=== PATIENT | female | born 1995 | race Hispanic/Latino ===

== ENCOUNTER 2019-08-12 13:27 | Day surgery (SDC) | payer OTHER ==
[2019-08-12 14:07] VITALS: BMI 28.1
[2019-08-12] MEDS ORDERED: hydrALAZINE 20 MG/ML VIAL SLOW IVP PRN (14:32)
[2019-08-12] MEDS ORDERED: Lactated Ringer's 1,000 ML IV SCH (14:45)
[2019-08-12 15:12] LABS: #Eosinphils 0.1 thou/uL (0.0-0.7); #Lymphocytes 1.2 thou/uL (1.20-3.40); #Monocytes 0.6 thou/uL (0.11-0.59); #Neutrophils 6.3 thou/uL (1.40-6.50); %Basophils 0.2 % (0.0-1.0); %Eosinophils 0.8 % (0.0-10.0); %Lymphocytes 14.4 % (21.0-51.0); %Monocytes 7.8 % (0.0-10.0); %Neutrophils 76.8 % (42.0-75.0); Hemoglobin 9.4 g/dL (12.0-16.0); Mean Corpuscular Hemoglobin 30.9 pg (27.0-31.0); Mean Corpuscular Volume 88.1 fL (78.0-98.0); Mean Platelet Volume 7.1 fL (7.4-10.4); Platelet Count 375 thou/uL (130-400); RBC Distribution Width 11.6 % (11.5-14.5); Red Blood Cell (RBC) Count 3.05 mill/uL (4.20-5.40); White Blood Cell (WBC) Count 8.2 thou/uL (4.8-10.8)
[2019-08-12 15:16] LABS: Bilirubin Negative (Negative); Blood, Urine Negative (Negative); Calcium Oxalate Crystals Rare HPF (None Seen); Clarity Clear (Clear); Glucose, Urine (Dipstick) Normal (Negative); Leukocyte Negative Leu/uL (Negative); Nitrite Negative (Negative); Protein, Urine (Dipstick) 10 mg/dL (Neg-Trace); RBC/HPF 0-3 HPF (0-3); Squamous Epithelial 0-3 HPF (0-3); Urobilinogen Normal mg/dL (Less than 2); WBC/HPF 0-3 HPF (0-3)
[2019-08-12 15:17] LABS: Bacteria/HPF 1+ HPF (None Seen)
[2019-08-12 15:18] LABS: Urine Culture Reflex No No
--- NOTE | 2019-08-12 16:42 | PDOC.FPROB ---
FMR OB H&P: HPI - History of Present Illness Chief Complaint: hematuria, ctx Indentification: 23 y/o @ 31.3 WGA History of Present Illness: Patient has h/o recurrent UTI during , most recently completed a course of keflex last week presents for hematuria, dysuria, and ctx. She reports her symptoms started this AM. Denies fevers, chills. Reports the ctx are every 5 minutes or so and rates them as a 10/10. Endorses movement, denies vaginal bleeding, vaginal d/c, LOF. Primary Care Physician: Dr. 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: h/o chlamydia in high school none during - Surgical History Sx History: appendectomy, ankle sx, wrist cyst removal, thumb sx, finger sx - Social History Social History: Denies tobacco, EtOH, or drug use - Family History Family History: Denies FMR OB H&P: Medications - Current Home Medications: Medication Instructions Recorded Confirmed Type Nortriptyline [Pamelor] 2 capsule PO DAILY 08/12/19 08/12/19 History Allergies/Adverse Reactions: Allergies Allergy/AdvReac Type Severity Reaction Status Date / Time No Known Allergies Allergy Verified 08/12/19 14:10 FMR OB H&P: ROS - Review of Systems General: denies: fever/chills, weight/appetite/sleep changes, fatigue Eyes: denies: vision changes, double vision ENT: denies: nasal congestion, rhinorrhea Cardiovascular: denies: chest pain, edema Respiratory: denies: cough, shortness of breath Gastrointestinal: reports: abdominal pain. denies: nausea, vomiting, diarrhea Genitourinary (Female): reports: dysuria, hematuria, contractions. denies: polyuria, vaginal discharge, vaginal pain, vaginal bleeding Musculoskeletal: denies: pain, tenderness Neurologic: denies: numbness, weakness Integumentary: denies: itching, rash Breast: denies: lumps, bumps Endocrine: denies: cold intolerance, heat intolerance Hematologic/Lymphatic: denies: prolonged or excessive bleeding, enlarged lymph nodes FMR OB H&P: Vital Signs - Maternal Vital signs: BP 103/57, HR 94, RR 16, O2 100% on RA - Heart Tones Baseline: 140 Variability: moderate Acceleration: present Deceleration: absent Category: category 1 FMR OB H&P: Physical Exam - Physical Exam General: NAD, awake, alert and oriented HEENT: EOMI, MMM, conjunctiva clear, grossly normal vision, grossly normal hearing Neck: supple, FROM Heart: RRR, normal S1/S2, no murmurs/rubs/gallops, pulses present, no edema General: CTAB, no respiratory distress, good air movement, no rales/rhonchi, no wheezing Abdomen: soft, gravid, other (mildly tender in suprapubic region) Musculoskeletal: pulses present, other (mild right sided back pain, no CVAT) Neurological: no clonus, no focal deficit Skin: good tugor, capillary refill <2 seconds Lymphatic: no unusual bruising or bleeding, no purpura Psychiatric: intact recent and remote memory, good judgement and insight - Pelvic Exam Vulva: normal hair distribution, no masses, no blood (leukorrhea of ), normal rugae Cervix: no masses, no lesions SVE: FT/50/-3 FMR OB H&P: Results - Labs Lab results: Laboratory Results - last 24 hr 08/12/19 08/12/19 14:58 15:02 WBC 8.2 RBC 3.05 L Hgb 9.4 L Hct 26.9 L MCV 88.1 MCH 30.9 MCHC 35.0 RDW 11.6 Plt Count 375 MPV 7.1 L Neutrophils % 76.8 H Lymphocytes % 14.4 L Monocytes % 7.8 Eosinophils % 0.8 Basophils % 0.2 Neutrophils # 6.3 Lymphocytes # 1.2 Monocytes # 0.6 H Eosinophils # 0.1 Basophils # 0.0 Urine Color Yellow Urine Clarity Clear Urine pH 6.5 Ur Specific [place] 1.022 Urine Protein 10 Urine Glucose (UA) Normal Urine Ketones Negative Urine Blood Negative Urine Nitrite Negative Urine Bilirubin Negative Urine Urobilinogen Normal Ur Leukocyte Esterase Negative Urine RBC 0-3 Urine WBC 0-3 Ur Squamous Epith Cells 0-3 Calcium Oxalate Crystal Rare A Urine Bacteria 1+ Hyaline Casts 0-3 Urine Culture Reflexed No FMR OB H&P: A/P - Problem List (1) contractions Status: Acute Code(s): O47.9 - FALSE LABOR, UNSPECIFIED Assessment and Plan: Cervical check was FT/50/-3 with contractions that were variable and not picking up on the monitor. Appeared dehydrated, so have given 2L LR -Will d/c home with strict labor precautions -f/u with Dr. Baer Disposition: d/c home Discussion: Date/Time: 08/12/19 1640 This H&P was discussed with Dr. Goodman who agrees with the above documentation and plan. Patient seen and examined by Dee Goodman MD. I agree with Dr Mcgraw assesment and plan Signature: Claudia Dorsey MD, PGY-3
== END 2019-08-12 17:15 | disposition home health service (06) ==
LOC: L&D/OP 13:27
PROVIDERS: ATTEND Family Medicine
DX: O47.03 False labor before 37 completed weeks of gestation, third trimester (principal); O99.89 Other specified diseases and conditions complicating pregnancy, childbirth and the puerperium; R31.9 Hematuria, unspecified; Z3A.31 31 weeks gestation of pregnancy; Z79.899 Other long term (current) drug therapy
CPT/HCPCS: 51701; 81001; 85025; 96360; 96361; 99283

== ENCOUNTER 2019-09-13 20:20 | Day surgery (SDC) | payer OTHER ==
[2019-09-13 20:57] VITALS: BMI 29.0
[2019-09-13] MEDS ORDERED: hydrALAZINE 20 MG/ML VIAL SLOW IVP PRN (21:21)
[2019-09-13] MEDS ORDERED: diphenhydrAMINE 50 MG/ML VIAL IVP PRN (21:22)
[2019-09-13] MEDS ORDERED: Metoclopramide HCl 10 MG/2 ML VIAL IVP PRN (21:22)
[2019-09-13] MEDS ORDERED: Sodium Chloride 0.9% 2,000 ML IV SCH (21:30)
[2019-09-13 22:10] LABS: Bacteria/HPF None Seen HPF (None Seen); Bilirubin Negative (Negative); Blood, Urine Negative (Negative); Clarity Clear (Clear); Glucose, Urine (Dipstick) Normal (Negative); Leukocyte Negative Leu/uL (Negative); Nitrite Negative (Negative); Protein, Urine (Dipstick) Negative (Neg-Trace); RBC/HPF 0-3 HPF (0-3); Squamous Epithelial 0-3 HPF (0-3); Urobilinogen Normal mg/dL (Less than 2); WBC/HPF 0-3 HPF (0-3)
--- NOTE | 2019-09-13 22:13 | PRG ---
DATE OF SERVICE: 09/13/2019 PRIMARY PRODUCTION ADMINISTRATOR: Dr. Juan Pablo Baer. CHIEF COMPLAINT: Back pain, pelvic pain, and headache. HISTORY OF PRESENT ILLNESS: The patient is a 23-year-old, G3, P0 female with an intrauterine at 36 weeks, who is presenting to Labor and Delivery with a 2-day history of back and pelvic pain. She reports that she has been having cramping more consistently today and has come in for evaluation. The patient reports that she has had chronic headaches for most of her and has been on nortriptyline that she takes every night and hydrocodone p.r.n. for headaches. The patient also reports that she had a urinary tract infection back in June, that she has had 2 in this , had one back in June, was on Keflex or antibiotic that she believed was making it worse and so discontinued it before completion. She reported that she was re-tested sometime later and was told that her infection had cleared. She saw her doctor last on Wednesday and has her urinalysis results with her by Patient Portal. The patient denies fever, fall, chest pain, shortness of breath, nausea, vomiting, diarrhea, constipation, hip problems, knee problems, or muscle weakness. Denies vaginal bleeding. She does report a discharge that she notices when she urinates. Denies urinary urgency or frequency. PAST MEDICAL HISTORY: Includes asthma, off medications. PAST SURGICAL HISTORY: She has had some ligament reconstruction on her hand and she has had a cyst removed on her wrist and has had her appendix removed. OB LABS: Unavailable at time of dictation. REVIEW OF SYSTEMS: Per HPI. PHYSICAL EXAMINATION: VITAL SIGNS: Blood pressure 125/88, heart rate in the one-teens, respiratory rate 18, saturating 100% on room air, and temperature 98.3. GENERAL: She appears to be in no acute distress. The patient is alert, oriented, cooperative, and pleasant to interact with. She does appear tearful and uncomfortable and points to the headache, primarily being on the right side. LUNGS: Clear to auscultation bilaterally. HEART: Regular rate and rhythm. ABDOMEN: Gravid and soft. She has tenderness to palpation in her SI joints bilaterally. She has no CVA tenderness appreciated on physical exam. : Has been deferred at this time. heart tracing shows fetus with a baseline in the 140s with moderate long- term variability and positive 15 x 15 accelerations. Tocometer shows a lot of irritability, but no contraction pattern. LABORATORY DATA: Urinalysis and VPIII are pending. In reviewing the records, the patient appears to have had a urinalysis with positive culture of E coli back in June. She also had a urinalysis in July, positive for 1+ bacteria and no documentation of treatment. Review of urine dip from the clinic just a few days ago shows positive nitrites and positive leukocyte esterase. ASSESSMENT AND PLAN: The patient is a 23-year-old female with contractions and physical exam findings, history, and lab findings highly suggested that she still has a urinary tract infection, likely causing her irritability. The patient will be getting IV with some aggressive hydration, a urinalysis for evaluation and suspect she continues to have a urinary tract infection. I gave her 2 g Rocephin IV piggyback. In addition, we will be treating her headache with Reglan and Benadryl and then we will re-evaluate at that time. VPIII will also be collected and sent given the increased discharge that she is describing. addendum: Headache resolved with treatment no evidence of uti by cath ua Pt feeling better with aggressive hydration and treating headache vp3 +for gardernella= metronidazole 500 mg bid x7days provided pt discharged home with labor precautions Job ID: [id number] [facility]
== END 2019-09-13 23:56 | disposition home or self-care (01) ==
LOC: L&D/OP 20:20
PROVIDERS: ATTEND Family Medicine
DX: O47.03 False labor before 37 completed weeks of gestation, third trimester (principal); O99.89 Other specified diseases and conditions complicating pregnancy, childbirth and the puerperium; R51 Headache; Z3A.36 36 weeks gestation of pregnancy
CPT/HCPCS: 81001; 87480; 87510; 87660; 96360; 96361; 96375; 99283; J1200; J2765

== ENCOUNTER 2019-09-24 10:53 | Day surgery (SDC) | payer OTHER ==
[2019-09-24 11:36] VITALS: BP 116/81; TEMP 98.7; BMI 30.2
[2019-09-24] MEDS ORDERED: hydrALAZINE 20 MG/ML VIAL SLOW IVP PRN (11:53)
--- NOTE | 2019-09-24 12:03 | PDOC.FPROB ---
FMR OB H&P: HPI - History of Present Illness Chief Complaint: Decreased movement Indentification: 24 year old History of Present Illness: 24 year old at 37.4 wks presents with decreased movement. Patient states that she hasn't felt baby move much since last night. Patient has yet to have anything to eat or drink this morning. She denies any vaginal bleeding, vaginal discharge, LoF, or contractions. Patient has A1GDM and reports FBG in 80 's and 2h PP BG's <120 with high to 118. She was recently treated for a UTI during labor triage and finished course of antibiotics on . Primary Care Physician: Dr. Baer FMR OB H&P: Current - Care : 3 Para: 0020 Gestational age: 37.4 wks FMR OB H&P: History - Past Medical History PMH: No significant PMH - OB History OB History: A1GDM, well controlled per patient SAB x2, did not require D&C - REFRIGERATING ENGINEER History REFRIGERATING ENGINEER History: Remote history of STD's, none in this - Surgical History Sx History: Appendectomy - Social History Social History: Denies alcohol, tobacco, or drug use - Family History Family History: Denies significant PMH FMR OB H&P: Medications - Current Home Medications: Medication Instructions Recorded Confirmed Type Pnv No.121/Iron/Folic Acid 1 each PO DAILY 09/13/19 09/24/19 History [ Multivitamin Tablet] Allergies/Adverse Reactions: Allergies Allergy/AdvReac Type Severity Reaction Status Date / Time No Known Allergies Allergy Verified 09/13/19 20:51 FMR OB H&P: ROS - Review of Systems General: denies: fever/chills, weight/appetite/sleep changes Eyes: denies: vision changes, double vision ENT: denies: nasal congestion, sore throat Cardiovascular: reports: edema. denies: chest pain, palpitation Respiratory: denies: cough, congestion, shortness of breath Gastrointestinal: denies: abdominal pain, nausea, vomiting, diarrhea Genitourinary (Female): denies: dysuria, vaginal discharge, vaginal pain, vaginal bleeding, contractions Musculoskeletal: denies: pain, stiffness Integumentary: denies: itching, rash, lesions Hematologic/Lymphatic: denies: prolonged or excessive bleeding Psychological: denies: depression, anxiety FMR OB H&P: Vital Signs - Maternal Vital signs: Vital Signs - First Documented Temp Pulse Resp BP Pulse Ox 98.7 F 82 18 116/81 100 09/24/19 11:30 09/24/19 11:30 09/24/19 11:30 09/24/19 11:30 09/24/19 11:30 - Heart Tones Baseline: 145 (Reactive) Variability: moderate Acceleration: present Deceleration: absent [place] contractions every: Irregular FMR OB H&P: Physical Exam - Physical Exam General: NAD, awake, alert and oriented HEENT: MMM, grossly normal vision, grossly normal hearing Heart: RRR General: no respiratory distress Abdomen: soft, gravid Musculoskeletal: pulses present, FROM in all four extremities Neurological: no tremor, no focal deficit Skin: no rash, capillary refill <2 seconds Lymphatic: no unusual bruising or bleeding, no purpura Psychiatric: intact recent and remote memory, good judgement and insight, normal mood and affect FMR OB H&P: A/P - Problem List (1) Term Status: Acute Code(s): Z34.90 - ENCNTR FOR SUPRVSN OF NORMAL , UNSP, UNSP TRIMESTER (2) Decreased movement Status: Acute Code(s): O36.8190 - DECREASED MOVEMENTS, UNSP TRIMESTER, UNSP (3) Gestational diabetes mellitus, class A1 Status: Acute Code(s): O24.410 - GESTATIONAL DIABETES MELLITUS IN , DIET CONTROLLED Disposition: 24 year old at 37.4 wks TIUP w/ decreased movement - Reactive NST, patient noting movement (at least 10 w/in 10 min) - Follow up w/ Dr. Baer scheduled for Wednesday - Patient without subjective contractions or evidence of labor - Return precautions given UTI - s/p treatment, finished antibiotics on - Advised to notify Dr. Baer A1GDM - Well controlled per patient - FBG 80's, 2h PP BG <120 (high 118 per patient) Dispo: D/c with labor/return precautions. Discussion: Date/Time: 09/24/19 7709 This H&P was discussed with Dr. Christianson who agrees with the above documentation and plan. Signature: Ifrah Calixto DO PGY-3 Addendum - Attending - Attending Attestation Date/Time: 09/24/19 9755 I personally evaluated the patient and discussed the management with Dr. Calixto. I agree with the History, Examination, Assessment and Plan documented above.
== END 2019-09-24 12:09 | disposition home health service (06) ==
LOC: L&D/OP 10:53
PROVIDERS: ATTEND Family Medicine
DX: O36.8130 Decreased fetal movements, third trimester, not applicable or unspecified (principal); O24.410 Gestational diabetes mellitus in pregnancy, diet controlled; Z3A.37 37 weeks gestation of pregnancy
CPT/HCPCS: 59025; 99282

== ENCOUNTER 2019-09-26 11:44 | Inpatient (IN) | payer OTHER ==
[2019-09-26] MEDS ORDERED: Bupivacaine HCl 0.5%/Epinephrine 1:200,000/PF 30 ml Vial ONE (12:00)
[2019-09-26] MEDS ORDERED: ePHEDrine/0.9% NaCl/PF SYRINGE 50 mg/10 ml ONE (12:00)
[2019-09-26 12:32] VITALS: BMI 30.8
[2019-09-26] MEDS ORDERED: FLU VACC QS2019-20(6MOS UP)/PF 60 MCG/0.5 ML SYRINGE IM ONE (12:45)
--- NOTE | 2019-09-26 13:44 | ULT ---
US Biophysical Profile History: Decreased movement Comparison: OB ultrasound May 2019 Findings: Real-time grayscale evaluation of the gravid uterus was performed transabdominal approach. The amniotic fluid index measures 4.5 cm. heart rate documented at 140 bpm. Biophysical profile score is 8/8. The placenta is anterior and the presentation is cephalic. Impression: 1. Biophysical profile score of 8/8. 2. Abnormally low amniotic fluid index of 4.5 cm.
[2019-09-26] MEDS ORDERED: NS / Oxytocin 40 units/1000ml 1,000 ML IV PRN (13:47)
[2019-09-26] MEDS ORDERED: HYDROcodone/Acetaminophen 5/325 mg Tablet PO PRN (13:47)
[2019-09-26] MEDS ORDERED: Diphenoxylate HCl/Atropine Tablet PO PRN (13:47)
[2019-09-26] MEDS ORDERED: Lidocaine 1% (PF) 30 ML VIAL SC PRN (13:47)
[2019-09-26] MEDS ORDERED: Ibuprofen 800 MG TAB PO PRN (13:47)
[2019-09-26] MEDS ORDERED: Methylergonovine 0.2 MG/ML VIAL IM PRN (13:47)
[2019-09-26] MEDS ORDERED: Ondansetron PF 4 MG/2 ML Vial IVP PRN (13:47)
[2019-09-26] MEDS ORDERED: Misoprostol 200 MCG TAB PR PRN (13:47)
[2019-09-26] MEDS ORDERED: hydrALAZINE 20 MG/ML VIAL SLOW IVP PRN (13:47)
[2019-09-26] MEDS ORDERED: Carboprost 250 MCG/ML AMP IM PRN (13:47)
[2019-09-26] MEDS ORDERED: Promethazine HCl 25 MG/ML VIAL IM PRN (13:47)
[2019-09-26] MEDS ORDERED: Penicillin G Potassium 5 MILL.UNITS in Sodium Chloride 0.9% 100 ML IVPB SCH (14:00)
[2019-09-26] MEDS: Acetaminophen 500 MG TAB PO PRN ×2 (14:26→21:43)
[2019-09-26] MEDS: Lactated Ringer's 1,000 ML IV SCH ×2 (15:00→21:44)
[2019-09-26 15:25] LABS: Hemoglobin 8.4 g/dL (12.0-16.0); Mean Corpuscular HGB CONC 33.8 g/dL (32.0-36.0); Mean Corpuscular Hemoglobin 26.8 pg (27.0-31.0); Mean Corpuscular Volume 79.4 fL (78.0-98.0); Mean Platelet Volume 8.5 fL (7.4-10.4); Platelet Count 323 thou/uL (130-400); RBC Distribution Width 14.6 % (11.5-14.5); Red Blood Cell (RBC) Count 3.11 mill/uL (4.20-5.40)
[2019-09-26 16:03] LABS: HBSAg Index 0.14 S/CO (0-0.99); Hep B Surf Ag Non-Reactive S/CO (NonReactive); Syphilis Antibody Nonreactive (Nonreactive); Syphilis Antibody Index 0.04 S/CO (<1.00 Non-Reactive)
[2019-09-26] MEDS ORDERED: Penicillin G 2.5 MILL.units 2.5 MILL.UNITS in Premix Bag 1 BAG IVPB SCH (17:00)
[2019-09-26] MEDS: Misoprostol 100 MCG TAB PO SCH ×3 (17:20→23:52)
[2019-09-26] MEDS: NS w/ Oxytocin 10 units 500 ML IV SCH (17:21)
[2019-09-26] MEDS: Butorphanol Tartrate 1 MG/ML VIAL SLOW IVP PRN (21:43)
[2019-09-27] MEDS: Butorphanol Tartrate 1 MG/ML VIAL SLOW IVP PRN ×3 (01:51→08:42)
[2019-09-27] MEDS: Misoprostol 100 MCG TAB PO SCH (06:19)
[2019-09-27] MEDS: Lactated Ringer's 1,000 ML IV SCH ×3 (06:28→23:05)
[2019-09-27] MEDS: NS w/ Oxytocin 10 units 500 ML IV SCH ×3 (06:28→19:06)
[2019-09-27] MEDS ORDERED: Fentanyl 4 mcg/Bup 0.1% Cadd 100 ML ONE (07:16)
[2019-09-27] MEDS ORDERED: Lidocaine 2% PF 5 ML VIAL ONE (11:39)
[2019-09-27] MEDS ORDERED: Ketorolac Tromethamine 30 MG/ML VIAL ONE ×2 (11:39→23:43)
[2019-09-27] MEDS ORDERED: Ondansetron PF 4 MG/2 ML Vial ONE ×2 (11:39→23:43)
[2019-09-27] MEDS ORDERED: PHENYLEPHRINE-NS 100 MCG/ML 10 ML SYRINGE ONE ×2 (11:39→23:43)
[2019-09-27] MEDS: Fentanyl 4 mcg/Bupivacaine 0.1% Cassette 100 ML EPIDURAL SCH ×2 (13:29→21:14)
[2019-09-27] MEDS ORDERED: Promethazine HCl 25 MG/ML VIAL IM PRN (13:32)
[2019-09-27] MEDS ORDERED: Ondansetron PF 4 MG/2 ML Vial IVP PRN (13:32)
[2019-09-27] MEDS ORDERED: Acetaminophen 325 MG TAB PO PRN (13:32)
[2019-09-27] MEDS ORDERED: diphenhydrAMINE 50 MG/ML VIAL IVP PRN (13:32)
[2019-09-27] MEDS ORDERED: ePHEDrine/0.9% NaCl/PF SYRINGE 50 mg/10 ml SLOW IVP PRN (13:32)
[2019-09-27] MEDS ORDERED: Lactated Ringer's 500 ML IV PRN (13:32)
[2019-09-27] MEDS ORDERED: Naloxone HCl 0.4 mg/ml Vial IVP PRN ×2 (13:32)
[2019-09-27] MEDS ORDERED: Communication Order-Pharmacy FS SCH (13:45)
[2019-09-27] MEDS: Acetaminophen 500 MG TAB PO PRN (23:04)
[2019-09-27] MEDS ORDERED: Lidocaine 2% 10 ML INJ ONE ×2 (23:24→23:27)
[2019-09-27] MEDS ORDERED: Bicitra 30 ML UDCUP PO SCH (23:30)
[2019-09-27] MEDS ORDERED: CEFAZOLIN 2 GM in Premix Bag 1 BAG IVPB SCH (23:30)
[2019-09-27] MEDS ORDERED: Azithromycin 500 MG in Sodium Chloride 0.9% 250 ML 250 ML IVPB SCH (23:30)
[2019-09-27] MEDS: Ampicillin 2 GM in Sodium Chloride 0.9% 100 ML IVPB SCH (23:38)
[2019-09-27] MEDS ORDERED: Oxytocin 10 UNITS/ML VIAL ONE (23:43)
[2019-09-27] MEDS ORDERED: MORPHINE 5 MG/10 ML PF VIAL ONE (23:47)
[2019-09-27] MEDS ORDERED: Fentanyl 100 MCG/2 ML VIAL ONE (23:57)
[2019-09-27] MEDS ORDERED: Bupivacaine PF 0.5% 30 ML VIAL ONE (23:57)
[2019-09-27] MEDS ORDERED: Ampicillin 125 MG/5 ML VIAL SLOW IVP SCH (23:59)
[2019-09-28] MEDS ORDERED: Midazolam HCl 2 mg/2 ml Vial ONE (00:07)
[2019-09-28] MEDS ORDERED: Carboprost 250 MCG/ML AMP ONE (00:08)
[2019-09-28] MEDS ORDERED: Methylergonovine 0.2 MG/ML VIAL ONE (00:08)
[2019-09-28] MEDS ORDERED: Oxytocin 10 UNITS/ML VIAL ONE (00:20)
[2019-09-28] MEDS ORDERED: Naloxone HCl 0.4 mg/ml Vial IVP PRN ×2 (00:32)
[2019-09-28] MEDS ORDERED: Promethazine HCl 25 MG/ML VIAL IM PRN (00:32)
[2019-09-28] MEDS ORDERED: Naloxone HCl 0.4 mg/ml Vial IV PRN (00:32)
[2019-09-28] MEDS ORDERED: Ondansetron PF 4 MG/2 ML Vial IVP PRN ×2 (00:32→03:00)
[2019-09-28] MEDS ORDERED: diphenhydrAMINE 50 MG/ML VIAL IVP PRN (00:32)
[2019-09-28] MEDS ORDERED: L&D-Morphine 4 MG/ML VIAL SLOW IVP PRN (00:32)
[2019-09-28] MEDS ORDERED: Ondansetron HCl/PF 4 MG/2 ML Vial IVP PRN (00:32)
[2019-09-28] MEDS ORDERED: HYDROmorphone 2 MG/ML VIAL SLOW IVP PRN (00:32)
[2019-09-28] MEDS ORDERED: Meperidine HCl/PF 25 MG/ML VIAL SLOW IVP PRN (00:32)
[2019-09-28] MEDS ORDERED: Ketorolac Tromethamine 30 MG/ML VIAL IVP PRN (00:32)
[2019-09-28] MEDS ORDERED: Promethazine HCl 25 MG SUPP PR PRN (00:32)
[2019-09-28] MEDS ORDERED: PHENYLEPHRINE-NS 100 MCG/ML 10 ML SYRINGE ONE (00:33)
[2019-09-28] MEDS ORDERED: Ketorolac Tromethamine 30 MG/ML VIAL IVP SCH (00:45)
[2019-09-28] MEDS ORDERED: Communication Order-Pharmacy FS SCH (00:45)
--- NOTE | 2019-09-28 00:54 | PDOC.OPDEL ---
OB Operative/Delivery Note Delivery Dr/Surgeon: Genesis Baer Pre-Delivery Diagnosis: arrest of dilation Procedure/Post Delivery Dx: primary low transverse CS Anesthesia: epidural - Additional Findings/Plan Placenta delivered: manual removal Compilations/Other Findings: Date of Procedure: 09/27/2019 Attending Surgeon: Keyur Resident Surgeon: Genesis Procedure: Primary low transverse caesarean section Preoperative Diagnosis: 1) Term intrauterine 2) Arrest of dilation 3) Oligohydramnios 4) Intrapartum fever 5) GDMA1 6) Anemia Postoperative Diagnosis: 1)same as above Anesthesia: spinal Indications: The patient is a 24 year old female at 37.4 weeks gestation who presented for induction but due to arrest of dilation, proceeded with LTCS. Course also complicated by intrapartum fever and oligohydramnios. Procedure in Detail: After risks, benefits, and alternatives were explained to the patient, she gave informed consent. Pre-operative antibiotics included Cefazolin 2 gram IV, Ampicillin, Gentamicin, Azithromycin. The patient was taken to the operating room. She was placed in the supine position with a left tilt and prepped and draped in usual sterile fashion. A Pfannenstiel incision was made with a scalpel and carried down to the level of the fascia which was sharply nicked. The fascial cut was extended bilaterally with [place] sissors. The inferior and superior edges of the cut fascial edges were elevated with Serg clamps and the underlying rectus muscles were sharply and bluntly dissected free. The recti were divided digitally and retracted manually. The peritoneum was entered bluntly and retracted manually. Bladder blade was placed. A low transverse score was made with the scalpel and the uterus was entered in the midline with the scalpel. Clear fluid was seen. The hysterotomy was extended manually. The was noted to be vertex and was easily delivered by fundal pressure. Mouth and nares were bulb suctioned. Cord clamped and cut and grossly normal male was handed to waiting nurse. Cord blood was obtained. Placenta was manually extracted, found to be intact with 3 vessel cord and discarded. The uterus was externalized and the endometrium was curetted with a dry lap. The bladder blade was replaced and the uterus was closed with a running locking 1-0 Monocryl suture followed by two horizontal mattress sutures. Following this hemostasis was noted. During this, patient given methergine and hemabate.The abdomen was irrigated with saline and suctioned free of clots. The uterus was internalized and the hysterotomy was again noted to be hemostatic. The peritoneum was closed with running non-locking 3-0 Vicryl suture. The fascia was closed with a running non-locking PDS suture. The subcutaneous tissue was irrigated and there were no bleeders. The skin was approximated with audrey and a pressure dressing was placed. All counts were correct. The patient tolerated the procedure well and was taken to the recovery room in stable condition. Plan to transfuse 2 units PRBC and 1 FFP. Quantitative Blood Loss: 975 ml Complications: None Specimens: Cord blood sent to lab for blood type Findings: Grossly normal female with Apgars of 8 and 9 born at 00:06 on 09/28. Grossly normal placenta with 3 vessel cord discarded. Drains: Mueller to gravity draining clear urine Post delivery plan: routine recovery
[2019-09-28] MEDS ORDERED: Meperidine HCl/PF 25 MG/ML VIAL IM PRN (03:00)
[2019-09-28] MEDS ORDERED: diphenhydrAMINE 25 MG CAP PO PRN (03:00)
[2019-09-28] MEDS ORDERED: NS / Oxytocin 40 units/1000ml 1,000 ML IV SCH (03:00)
[2019-09-28] MEDS ORDERED: Bisacodyl 10 MG SUPP PR PRN (03:00)
[2019-09-28] MEDS ORDERED: hydrALAZINE 20 MG/ML VIAL SLOW IVP PRN (03:00)
[2019-09-28] MEDS: Ketorolac Tromethamine 30 MG/ML VIAL IVP SCH ×2 (05:51→12:45)
[2019-09-28] MEDS: Lactated Ringer's 1,000 ML IV SCH (05:59)
[2019-09-28] MEDS: Ampicillin 2 GM in Sodium Chloride 0.9% 100 ML IVPB SCH (06:16)
[2019-09-28 06:24] LABS: Hemoglobin 7.4 g/dL (12.0-16.0); Mean Corpuscular HGB CONC 33.4 g/dL (32.0-36.0); Mean Corpuscular Volume 80.9 fL (78.0-98.0); Mean Platelet Volume 8.2 fL (7.4-10.4); Platelet Count 176 thou/uL (130-400); RBC Distribution Width 14.3 % (11.5-14.5); Red Blood Cell (RBC) Count 2.73 mill/uL (4.20-5.40); White Blood Cell (WBC) Count 13.9 thou/uL (4.8-10.8)
[2019-09-28] MEDS: Docusate Calcium (SURFAK) 240 MG CAP PO SCH ×2 (08:40→20:03)
[2019-09-28] MEDS: Prenatal Vitamin 1 TAB PO SCH (08:41)
[2019-09-28] MEDS: Ferrous Sulfate 325 MG TAB PO SCH ×2 (08:41→20:03)
[2019-09-28] MEDS ORDERED: Adacel (T-DAP) 0.5 ML SYRINGE IM ONE (09:00)
[2019-09-28] MEDS: HYDROcodone/Acetaminophen 5/325 mg Tablet PO PRN (20:02)
[2019-09-28] MEDS: Simethicone Chewable 80 MG TAB PO PRN (20:03)
[2019-09-28] MEDS: Ibuprofen 800 MG TAB PO SCH (20:04)
[2019-09-28] MEDS: Lanolin Ointment 7 GM TUBE TOP PRN (20:05)
[2019-09-29] MEDS: Ketorolac Tromethamine 30 MG/ML VIAL IVP SCH (02:39)
[2019-09-29] MEDS: Simethicone Chewable 80 MG TAB PO PRN ×4 (05:50→19:41)
[2019-09-29] MEDS: HYDROcodone/Acetaminophen 5/325 mg Tablet PO PRN ×5 (05:50→19:39)
[2019-09-29] MEDS: Ibuprofen 800 MG TAB PO SCH ×3 (05:50→22:31)
[2019-09-29] MEDS ORDERED: Ibuprofen 800 MG TAB PO SCH (06:00)
[2019-09-29] MEDS: Docusate Calcium (SURFAK) 240 MG CAP PO SCH ×2 (09:38→19:41)
[2019-09-29] MEDS: Ferrous Sulfate 325 MG TAB PO SCH ×2 (09:38→19:41)
[2019-09-29] MEDS: Prenatal Vitamin 1 TAB PO SCH (09:38)
[2019-09-30] MEDS: HYDROcodone/Acetaminophen 5/325 mg Tablet PO PRN ×2 (04:41→09:50)
[2019-09-30] MEDS: Ibuprofen 800 MG TAB PO SCH ×3 (04:41→21:23)
[2019-09-30] MEDS: Docusate Calcium (SURFAK) 240 MG CAP PO SCH ×2 (09:43→21:23)
[2019-09-30] MEDS: Prenatal Vitamin 1 TAB PO SCH (09:44)
[2019-09-30] MEDS: Simethicone Chewable 80 MG TAB PO PRN ×2 (09:50→21:27)
[2019-09-30] MEDS: Ferrous Sulfate 325 MG TAB PO SCH ×2 (09:51→21:23)
[2019-09-30] MEDS: Lanolin Ointment 7 GM TUBE TOP PRN (21:25)
[2019-10-01] MEDS: HYDROcodone/Acetaminophen 5/325 mg Tablet PO PRN ×2 (01:14→15:25)
[2019-10-01 04:00] VITALS: BP 117/69; TEMP 98.3
[2019-10-01] MEDS: Ibuprofen 800 MG TAB PO SCH ×2 (06:35→13:58)
[2019-10-01] MEDS: Prenatal Vitamin 1 TAB PO SCH (10:50)
[2019-10-01] MEDS: Ferrous Sulfate 325 MG TAB PO SCH (10:50)
[2019-10-01] MEDS: Docusate Calcium (SURFAK) 240 MG CAP PO SCH (10:51)
--- NOTE | 2019-10-03 04:20 | PQF ---
[employer] Blanket Maker Crystal Reports Winform [email or web address] COREAS ROLAND R MD [id number] CLINICAL DOCUMENTATION CLARIFICATION FORM: POST DISCHARGE Addendum to original discharge summary date: ____ Late entry note date: __ DATE: 10/03/2019 ATTN: KATYA MOE MD Please exercise your independent, professional judgment in responding to the clarification form. Clinical indicators are provided on the bottom of this form for your review Please check appropriate box(s): [ X ] Acute blood loss anemia [ X ] Chronic Anemia [ ] Other diagnosis [ ] Unable to determine In addition, please specify: Present on Admission (POA): [X ] Yes [ ] No [ ] Unable to determine For continuity of documentation, please document condition throughout progress notes and discharge summary. Thank You. CLINICAL INDICATORS - SIGNS / SYMPTOMS / LABS HGB 8.4 on 09/26 and 7.4 on 09/28 - Documetned in Laboratory results HCT 24.7 on 09/26 and 22.1 on 09/28 - Documetned in Laboratory results Pulse level 107 on 09/28 - Documented in Vital signs RR 22 on 09/28 - Documented in Vital signs BP 107/58 on 09/28 - Documented in Vital signs Anemia -Documented in L&D notes RISK FACTORS [place] - -Documented in L&D notes Oligohydrominos - -Documented in L&D notes Obesity- -Documented in L&D notes Atonu uterus - -Documented in L&D notes TREATMENTS: Ferrous Sulfate 325 mg - Documented in Medication report (This form is maintained as a part of the permanent medical record) [employer] Blanket Maker Crystal Reports Winform [id number] [employer]. All Rights Reserved [email or web address] [email or web address] [not provided] [email or web address]
== END 2019-10-01 15:35 | disposition home or self-care (01) | DRG 787 ==
LOC: L&D/OP 11:44 → L&D 14:45 → 3SW 09-28 03:22
PROVIDERS: ADMIT Family Medicine; ATTEND Family Medicine
PROC: 10907ZC Drainage of Amniotic Fluid, Therapeutic from Products of Conception, Via Natural or Artificial Opening (ICD-10-PCS; principal; 2019-09-26)
PROC: 3E033VJ Introduction of Other Hormone into Peripheral Vein, Percutaneous Approach (ICD-10-PCS; 2019-09-26)
PROC: 10D00Z1 Extraction of Products of Conception, Low, Open Approach (ICD-10-PCS; 2019-09-27)
DX: O24.420 Gestational diabetes mellitus in childbirth, diet controlled (principal); O75.2 Pyrexia during labor, not elsewhere classified; O41.03X0 Oligohydramnios, third trimester, not applicable or unspecified; D62 Acute posthemorrhagic anemia; O62.1 Secondary uterine inertia; O99.214 Obesity complicating childbirth; E66.9 Obesity, unspecified; O99.02 Anemia complicating childbirth; Z37.0 Single live birth; Z3A.38 38 weeks gestation of pregnancy; O75.89 Other specified complications of labor and delivery
CPT/HCPCS: 36415; 36416; 36430; 51702; 76819; 85027; 86780; 86850; 86900; 86901; 87340; 99285; J0131; J0290; J0456; J0595; J0670; J0690; J1200; J1580; J1885; J2001; J2210; J2250; J2274; J2405; J2590; J3010; J3490; J7050; P9016; P9059; S0020